=== PATIENT | male | born 1980 | race Two or more races ===

== ENCOUNTER 2023-05-12 19:12 | Inpatient (IN) | payer OTHER ==
[~2023-05-12] VITALS: Ht 170.2 cm; Wt 89.3 kg
[2023-05-12] MEDS ORDERED: SODIUM CHLORIDE 0.9% 1,000 ML IV ONE (19:45)
[2023-05-12 20:16] LABS: Basophils # (auto) 0.1 10 ^3/uL (0-0.2); Basophils % (auto) 0.6 % (0.0-2.0); Eosinophils # (auto) 0 10 ^3/uL (0-0.8); Eosinophils % (auto) 0.2 % (0.0-7.0); Hematocrit 50.7 % (41.0-53.0); Hemoglobin 17.3 g/dL (13.5-17.5); Lymphocytes # (auto) 1.7 10 ^3/uL (0.4-5.4); Lymphocytes % (auto) 20.7 % (10.0-50.0); Mean Corpuscular Hemoglobin 30.8 pg (28.0-32.0); Mean Corpuscular Hgb Conc. 34.1 g/dL (32.0-36.0); Mean Corpuscular Volume 90.5 fL (80.0-100.0); Monocytes # (auto) 0.5 10 ^3/uL (0-1.3); Monocytes % (auto) 5.9 % (0.0-12.0); Neutrophils # (auto) 6.1 10 ^3/uL (1.6-8.6); Neutrophils % (auto) 72.6 % (37.0-80.0); Red Blood Cells 5.61 10^6/uL (4.5-5.90); Red Cell Distribution Width 13.1 % (11.8-14.3); White Blood Cell 8.4 10^3/uL (4.4-10.8)
[2023-05-12 20:33] LABS: Alanine Aminotransferase 24 U/L (7-40); Albumin 4.9 g/dL (3.2-4.8); Alkaline Phosphatase 126 U/L (46-116); Anion Gap 20 (5-15); BUN/Creatinine Ratio 11.5 (10.0-20.0); Bilirubin, Total 0.7 mg/dL (0.2-1.0); Blood Urea Nitrogen 18 mg/dL (9-23); Carbon Dioxide 14 mmol/L (20-30); Chloride 99 mmol/L (98-107); Potassium 4.6 mmol/L (3.5-5.1); Sodium 133 mmol/L (136-145)
[2023-05-12] MEDS ORDERED: IOHEXOL 350 MG/ML 100ML IJ ONE (21:32)
[2023-05-12 21:57] LABS: Aspartate Aminotransferase 13 U/L (13-40)
[2023-05-12 22:07] LABS: Glucose 420 mg/dL (74-106)
[2023-05-12 22:11] LABS: Urine Bacteria NONE SEEN /hpf (None Seen); Urine Blood Negative /uL (Negative); Urine Clarity Clear (Clear); Urine Mucus FEW (None Seen); Urine Protein, UAD 1+ (Negative); Urine Specific Gravity 1.035 (1.001-1.035); Urine Urobilinogen Normal (Negative); Urine WBC <1 /hpf (0 - 3)
[2023-05-12 22:12] LABS: Urine Color STRAW (Yellow)
[2023-05-12 22:40] LABS: Base Excess -13.8 mmol/L (-2.0-2.0)
[2023-05-12] MEDS ORDERED: INSULIN LANTUS (GLARGINE) 1 /0.01ml (100units/ml) SC ONE (22:45)
[2023-05-12] MEDS ORDERED: DEXTROSE (50%) 50ML SYRG IV PRN ×2 (22:45→23:15)
[2023-05-12] MEDS ORDERED: POTASSIUM CHL 20MEQ/100ML 100 ML IV ONE (22:45)
[2023-05-12] MEDS ORDERED: INSULIN DRIP 100 UNIT/100ML 100 ML IV SCH (22:45)
[2023-05-12] MEDS ORDERED: NITROGLYCERIN 0.4 MG SL TAB SL PRN (23:15)
[2023-05-12] MEDS ORDERED: ONDANSETRON HCL 4 MG/2 ML VIAL IV PRN (23:15)
[2023-05-12] MEDS ORDERED: MORPHINE SULFATE INJ 2 MG/ml SYRG IV PRN (23:15)
[2023-05-12 23:43] LABS: Magnesium 2.4 mg/dL (1.6-2.6)
[2023-05-12 23:45] LABS: Phosphorus 4.5 mg/dL (2.4-5.1)
[2023-05-13] MEDS ORDERED: ACCU-CHEK COMFORT CURVE STRIP VI SCH
[2023-05-13] MEDS: ACCU-CHEK COMFORT CURVE STRIP VI SCH ×12 (00:30→23:53)
[2023-05-13 00:39] VITALS: PULSE 86; RESP 17; O2SAT 98
[2023-05-13] MEDS: SODIUM CHLORIDE 0.9% 1,000 ML IV SCH ×2 (00:44→01:55)
[2023-05-13] MEDS ORDERED: SODIUM CHLORIDE 0.9% 1,000 ML IV SCH ×2 (03:15→05:15)
[2023-05-13 07:20] LABS: Basophils # (auto) 0 10 ^3/uL (0-0.2); Basophils % (auto) 0.6 % (0.0-2.0); Eosinophils # (auto) 0.1 10 ^3/uL (0-0.8); Hematocrit 42.7 % (41.0-53.0); Hemoglobin 14.5 g/dL (13.5-17.5); Lymphocytes # (auto) 2.2 10 ^3/uL (0.4-5.4); Lymphocytes % (auto) 40.8 % (10.0-50.0); Mean Corpuscular Hemoglobin 30.5 pg (28.0-32.0); Mean Corpuscular Volume 89.9 fL (80.0-100.0); Monocytes # (auto) 0.4 10 ^3/uL (0-1.3); Monocytes % (auto) 8.1 % (0.0-12.0); Neutrophils # (auto) 2.6 10 ^3/uL (1.6-8.6); Neutrophils % (auto) 49.5 % (37.0-80.0); Nucleated Red Blood Cells % 0.1 %; Red Blood Cells 4.76 10^6/uL (4.5-5.90); Red Cell Distribution Width 13.1 % (11.8-14.3); White Blood Cell 5.3 10^3/uL (4.4-10.8)
[2023-05-13 07:30] VITALS: PULSE 76; RESP 16; O2SAT 99
[2023-05-13 07:47] LABS: Alanine Aminotransferase 14 U/L (7-40); Albumin 3.8 g/dL (3.2-4.8); Alkaline Phosphatase 74 U/L (46-116); Anion Gap 16 (5-15); Aspartate Aminotransferase 9 U/L (13-40); BUN/Creatinine Ratio 8.3 (10.0-20.0); Blood Urea Nitrogen 9 mg/dL (9-23); Calcium 8.2 mg/dL (8.5-10.1); Carbon Dioxide 12 mmol/L (20-30); Potassium 3.8 mmol/L (3.5-5.1); Sodium 142 mmol/L (136-145)
[2023-05-13 07:48] LABS: Bilirubin, Total 0.5 mg/dL (0.2-1.0); Total Protein 6.3 g/dL (5.7-8.2)
[2023-05-13 07:51] LABS: Chloride 114 mmol/L (98-107); Glucose 190 mg/dL (74-106)
[2023-05-13] MEDS ORDERED: D5W/SOD CHLO 0.9% 1,000 ML IV SCH (09:30)
[2023-05-13] MEDS: INSULIN LANTUS (GLARGINE) 1 /0.01ml (100units/ml) SC SCH ×2 (09:38→12:00)
[2023-05-13] MEDS ORDERED: DEXTROSE (50%) 50ML SYRG IV PRN (11:15)
[2023-05-13 11:31] LABS: Chloride 115 mmol/L (98-107); Potassium 3.7 mmol/L (3.5-5.1); Sodium 143 mmol/L (136-145)
[2023-05-13 11:32] LABS: Anion Gap 15 (5-15); Calcium 8.3 mg/dL (8.5-10.1); Carbon Dioxide 13 mmol/L (20-30)
[2023-05-13] MEDS: SOD CHL 0.45% 1,000 ML IV SCH ×2 (11:33→19:59)
[2023-05-13 11:37] LABS: BUN/Creatinine Ratio 6.7 (10.0-20.0); Blood Urea Nitrogen 7 mg/dL (9-23); Glucose 223 mg/dL (74-106)
[2023-05-13] MEDS: InsuLIN REG 1unit/0.01ml Soln (100units/ml) SC SCH ×4 (12:23→23:54)
[2023-05-13 19:30] VITALS: PULSE 82; RESP 20; O2SAT 96
[2023-05-13 23:24] VITALS: PULSE 71
[2023-05-13 23:32] VITALS: BP 137/86; PULSE 70; RESP 20; O2SAT 97
[2023-05-13 23:34] VITALS: PULSE 70; RESP 20; O2SAT 97
[2023-05-14] MEDS: ACCU-CHEK COMFORT CURVE STRIP VI SCH ×3 (03:31→15:45)
[2023-05-14] MEDS: InsuLIN REG 1unit/0.01ml Soln (100units/ml) SC SCH ×4 (03:33→16:11)
[2023-05-14] MEDS: SOD CHL 0.45% 1,000 ML IV SCH (03:35)
[2023-05-14 04:00] VITALS: BP 109/69; PULSE 63; RESP 20; TEMP 98; O2SAT 94
[2023-05-14 06:30] LABS: Chloride 109 mmol/L (98-107); Potassium 2.8 mmol/L (3.5-5.1); Sodium 138 mmol/L (136-145)
[2023-05-14 06:31] LABS: Anion Gap 10 (5-15); Calcium 7.9 mg/dL (8.7-10.4); Carbon Dioxide 19 mmol/L (20-30)
[2023-05-14 06:36] LABS: BUN/Creatinine Ratio 10.2 (10.0-20.0); Blood Urea Nitrogen 9 mg/dL (9-23); Glucose 200 mg/dL (74-106)
[2023-05-14 06:38] LABS: Phosphorus 2.3 mg/dL (2.4-5.1)
[2023-05-14 08:00] VITALS: PULSE 65
[2023-05-14] MEDS ORDERED: INSLANTI SC (08:09)
[2023-05-14] MEDS ORDERED: INSU100I51 SC (08:09)
[2023-05-14] MEDS ORDERED: BLOO1KIT60 XX (08:10)
[2023-05-14] MEDS ORDERED: INSU1MIS36 XX (08:10)
[2023-05-14] MEDS ORDERED: POTASSIUM EFFERVESENT TAB 25 MEQ PO ONE (08:15)
[2023-05-14] MEDS ORDERED: DEXTROSE (50%) 50ML SYRG IV PRN (08:15)
[2023-05-14] MEDS ORDERED: POTASSIUM CHLORIDE 20 MEQ, LIDOCAINE 1% (LOCAL ANESTH.) 2 ML in SODIUM CHL 0.9% 100 ML IV ONE (08:15)
[2023-05-14 08:34] VITALS: BP 103/71; PULSE 59; RESP 18; TEMP 97.6; O2SAT 96
[2023-05-14] MEDS: INSULIN LANTUS (GLARGINE) 1 /0.01ml (100units/ml) SC SCH (10:20)
[2023-05-14] MEDS ORDERED: InsuLIN REG 1unit/0.01ml Soln (100units/ml) SC SCH (12:00)
[2023-05-14 13:00] VITALS: BP 108/64; PULSE 77; RESP 17; TEMP 98.7; O2SAT 95
[2023-05-14 15:27] VITALS: TEMP 37.1
[2023-05-14 16:47] LABS: Chloride 104 mmol/L (98-107); Potassium 3.6 mmol/L (3.5-5.1); Sodium 135 mmol/L (136-145)
[2023-05-14 16:48] LABS: Anion Gap 7 (5-15); Calcium 8.4 mg/dL (8.5-10.1); Carbon Dioxide 24 mmol/L (20-30)
[2023-05-14 16:53] LABS: Blood Urea Nitrogen 7 mg/dL (9-23); Glucose 233 mg/dL (74-106)
[2023-05-14 17:00] VITALS: BP 120/87; PULSE 73; RESP 17; TEMP 97.9; O2SAT 96
== END 2023-05-14 18:15 | disposition home or self-care (01) | DRG 638 ==
LOC: ER 19:12 → TELE 23:15 → TELE-WESTW 05-13 23:21
PROVIDERS: ADMIT Nurse Practitioner; ATTEND Nurse Practitioner Acute Care
DX: E11.10 Type 2 diabetes mellitus with ketoacidosis without coma (principal); N17.9 Acute kidney failure, unspecified; E86.0 Dehydration; I10 Essential (primary) hypertension; Z79.4 Long term (current) use of insulin
CPT/HCPCS: 36415; 36600; 71275; 74178; 80048; 80053; 81001; 82010; 82805; 82962; 83735; 83930; 84100; 85025; 96360; G0378; J1815; J2001; J3480